=== PATIENT | female | born 1955 | race Caucasian/White ===

== ENCOUNTER 2017-01-19 07:43 | Emergency (ER) | payer BC ==
[~2017-01-19] VITALS: Ht 167.6 cm; Wt 68.9 kg
[2017-01-19] MEDS ORDERED: TYLENOL WITH C1 EACH PO (09:08)
[2017-01-19 09:16] VITALS: BP 134/96
== END 2017-01-19 09:17 | disposition home or self-care (01) ==
LOC: EME 07:43
DX: S46.911A Strain of unspecified muscle, fascia and tendon at shoulder and upper arm level, right arm, initial encounter (principal); M75.91 Shoulder lesion, unspecified, right shoulder; X50.9XXA Other and unspecified overexertion or strenuous movements or postures, initial encounter; Y93.89 Activity, other specified
CPT/HCPCS: 73030; 73060; 99281; 99283